=== PATIENT | female | born 1970 | race Caucasian/White ===

== ENCOUNTER → 2017-05-10 | Outpatient (CLI) | payer BC ==
[~2017-05-10] MED LIST: ALPR-475 PO; LEVO100T5 PO; LISI1TAB5 PO; LURA20TA PO; NORE5TAB PO; OMNIPAQUE 350 MG/ML, 100ML BOTTLE ONE; OXYC1TAB7 PO
== END | disposition home or self-care (01) ==
LOC: CFH 11:29
PROVIDERS: ATTEND Physician Assistant Medical
DX: K57.30 Diverticulosis of large intestine without perforation or abscess without bleeding (principal); K76.0 Fatty (change of) liver, not elsewhere classified; N83.201 Unspecified ovarian cyst, right side
CPT/HCPCS: 36415; 74177; 82565; 85025; Q9967

== ENCOUNTER 2020-09-28 18:19 | Emergency (ER) | payer BC ==
[~2020-09-28] VITALS: Ht 170.2 cm; Wt 83.4 kg
[~2020-09-28 18:19] MED LIST changes: -ALPR-475 PO; +ALPR0.5T7 PO; +LISI1TAB39 PO; -LISI1TAB5 PO; -OMNIPAQUE 350 MG/ML, 100ML BOTTLE ONE
[2020-09-28] MEDS ORDERED: SODIUM CHLORIDE FLUSH 10ML SYR IVF ONE ×2 (19:00→22:30)
[2020-09-28 19:57] LABS: BASOPHILS % (AUTO) 1 % (0-1); EOSINOPHILS % (AUTO) 1 % (1-7); LYMPHOCYTES % (AUTO) 43 % (22-44); MD NO; MEAN CORPUSCULAR HEMOGLOBIN 30.7 pg (27.0-34.8); MEAN CORPUSCULAR HGB CONC 33.5 g/dL (32.4-35.8); MEAN PLATELET VOLUME 7.6 fL (7.4-10.4); MONOCYTES % (AUTO) 5 % (2-9); NEUTROPHILS % (AUTO) 50 % (42-75); PLATELET COUNT 356 x10^3/uL (130-400); RED CELL DISTRIBUTION WIDTH 13.1 % (9.6-15.2)
[2020-09-28 20:03] LABS: CHLORIDE 107 mmol/L (98-107)
[2020-09-28 20:12] LABS: ALANINE AMINOTRANSFERASE 26 U/L (12-78); ALBUMIN 4.5 g/dL (3.4-5.0); ALKALINE PHOSPHATASE 77 U/L (45-117); ANION GAP 5 mmol/L (5-15); BILIRUBIN,TOTAL 0.5 mg/dL (0.2-1.0); CALCIUM 9.3 mg/dL (8.5-10.1); CREATININE 0.62 mg/dL (0.55-1.02); TOTAL PROTEIN 8.3 g/dL (6.4-8.2); TROPONIN I < 0.015 ng/mL (0.000-0.045)
--- NOTE | 2020-09-28 22:05 | NUR ---
PT IN GOWN IN [facility]; AWAITING ERP AT THIS TIME.
--- NOTE | 2020-09-28 22:08 | NUR ---
DR SHOOK AT FOR PT HISTORY AND ASSESSMENT.
[2020-09-28] MEDS ORDERED: MORPHINE SULFATE 4 MG/ML, 1ML ONE (22:26)
[2020-09-28] MEDS ORDERED: ONDANSETRON 2MG/ML, 2ML ONE (22:27)
[2020-09-28] MEDS ORDERED: ONDANSETRON 2MG/ML, 2ML IVPush ONE (22:30)
[2020-09-28] MEDS ORDERED: MORPHINE SULFATE 4 MG/ML, 1ML IVPush PRN (22:30)
--- NOTE | 2020-09-28 22:43 | NUR ---
PT MEDICATED FOR PAIN AND NAUSEA PER JAN. PT TO CT VIA [facility] AT THIS TIME.
--- NOTE | 2020-09-28 23:00 | NUR ---
PT RETURNS FROM CT VIA [facility] AT THIS TIME.
--- NOTE | 2020-09-28 23:29 | NUR ---
PT RESTING COMFORTABLY IN GURNEY AT THIS TIME WITH NADN. PT WITH CALL LIGHT WITHIN REACH. PT DENIES ANY NEEDS AT THIS TIME.
[2020-09-28 23:42] LABS: MICROSCOPIC NOT IND
[2020-09-28] MEDS ORDERED: OMNIPAQUE 350 MG/ML, 100ML BOTTLE ONE (23:43)
[2020-09-29 00:20] VITALS: BP 134/78
== END 2020-09-29 01:18 | disposition home or self-care (01) ==
LOC: ED 09-29 00:51
DX: R10.84 Generalized abdominal pain (principal); I10 Essential (primary) hypertension; Z90.49 Acquired absence of other specified parts of digestive tract; Z90.710 Acquired absence of both cervix and uterus
CPT/HCPCS: 36415; 71045; 74177; 76700; 80053; 81003; 83690; 84484; 85025; 96374; 96375; 99285; J2270; J2405; Q9967

== ENCOUNTER 2021-01-23 10:53 | Emergency (ER) | payer BC ==
[~2021-01-23] VITALS: Ht 170.2 cm; Wt 81.7 kg
--- NOTE | 2021-01-23 11:14 | NUR ---
PA AT BS
[2021-01-23] MEDS ORDERED: DIPHENHYDRAMINE 50 MG/ML, 1ML IVPush ONE (11:30)
[2021-01-23] MEDS ORDERED: PROCHLORPERAZINE 5 MG/ML, 2ML IVPush ONE (11:30)
[2021-01-23] MEDS ORDERED: SODIUM CHLORIDE 0.9% 1,000ML IVBOLUS ONE (11:30)
[2021-01-23] MEDS ORDERED: DIPHENHYDRAMINE 50 MG/ML, 1ML ONE (11:35)
[2021-01-23] MEDS ORDERED: PROCHLORPERAZINE 5 MG/ML, 2ML ONE (11:35)
[2021-01-23 11:44] LABS: BASOPHILS % (AUTO) 1 % (0-1); EOSINOPHILS % (AUTO) 2 % (1-7); LYMPHOCYTES % (AUTO) 18 % (22-44); MD NO; MEAN CORPUSCULAR HEMOGLOBIN 30.7 pg (27.0-34.8); MEAN CORPUSCULAR HGB CONC 33.1 g/dL (32.4-35.8); MEAN PLATELET VOLUME 7.3 fL (7.4-10.4); MONOCYTES % (AUTO) 10 % (2-9); NEUTROPHILS % (AUTO) 69 % (42-75); PLATELET COUNT 271 x10^3/uL (130-400); RED BLOOD COUNT 4.87 x10^6/uL (3.82-5.3); RED CELL DISTRIBUTION WIDTH 13.2 % (9.6-15.2)
[2021-01-23 11:50] LABS: ALBUMIN 4.5 g/dL (3.4-5.0); ANION GAP 7 mmol/L (5-15); CALCIUM 9.5 mg/dL (8.5-10.1); CHLORIDE 106 mmol/L (98-107); CREATININE 0.72 mg/dL (0.55-1.02)
[2021-01-23 11:57] LABS: RAPID INFLUENZA A Negative (Negative); RAPID INFLUENZA B Negative (Negative)
--- NOTE | 2021-01-23 13:05 | NUR ---
VSS, PT REPORTS JOINT PAIN IMPROVED BUT LANDEROS PAIN CONTINUES AT 9/10. CT RESULTS PENDING
[2021-01-23] MEDS ORDERED: GADOTERATE 10 MMOL/20ML SYR ONE (14:40)
[2021-01-23 16:16] VITALS: BP 140/75
--- NOTE | 2021-01-23 16:17 | NUR ---
POC DISCUSSED WITH DR HERNANDEZ. DR ATKINS TO DISCUSS WITH PT. PT INFORMED
--- NOTE | 2021-01-23 16:39 | NUR ---
Patient given discharge instructions and they have confirmed that they understand the instructions. Patient ambulatory with steady gait.
== END 2021-01-23 16:41 | disposition home or self-care (01) ==
LOC: ED 11:10
DX: U07.1 COVID-19 (principal); B34.9 Viral infection, unspecified
CPT/HCPCS: 36415; 70450; 70553; 71045; 80048; 82040; 85025; 87400; 96361; 96374; 96375; 99285; A9575; J0780; J1200; J7030; U0003

== ENCOUNTER 2021-04-09 17:22 | Emergency (ER) | payer BC ==
[~2021-04-09] VITALS: Ht 170.2 cm; Wt 82.7 kg
--- NOTE | 2021-04-09 17:57 | NUR ---
OFFSET LABEL REWINDER: PT AMBULATORY TO ROOM FROM LOBBY AT THIS TIME.
--- NOTE | 2021-04-09 18:49 | NUR ---
PT STATES CAME JANUARY 23 FOR COVID AND A HEADACHE. PT STATES FORCED THEM TO GIVE A COVID TEST WHICH CAME BACK. PT STATES THAT HAS SEEN 5 DOCTORS AND HAS BEEN GIVEN STERIODS AND INHALERS. PT STATES THAT IT HAS BECOME WORSE TODAY COUGHING AND DIFFICULT BREATHING AFTER TAKING 2 ALBUTEROL TREATEMENTS AND AFTER TAKING HER SIMBICORE. PT FELT SICK AND STARTING A FEVER COMING ON TODAY. PT IS OVER BEING SENT HOME WITH ANTIBIOTICS AND STERIODS. PT STATES THAT SHE HAS CRACKLES ON LUNGS.
--- NOTE | 2021-04-09 19:06 | NUR ---
PROVIDER AT BEDSIDE TO DO EVALUATIONS PT ALSO STATES LIVED IN HOUSE WITH MOLD FOR 5 MONTHS AND THE ROOF CAVED. PT STATES TOOK TODAY 4 ALBUTEROL 4 PUFF SIMBICORE, X2 800MG IBPROFEN, ANTIBIOTICS.
--- NOTE | 2021-04-09 19:08 | NUR ---
RECEIVED BS REPORT FROM APOLINAR ROTHMAN TO ASSUME CARE OF PT. DR. MARTINEZ AT BS TO EVAL PT. AND DISCUSS POC.
--- NOTE | 2021-04-09 19:11 | NUR ---
GAVE REORT TO NITIN JIANG TO ASSUME CARE.
[2021-04-09 20:23] VITALS: BP 134/84
[2021-04-09] MEDS ORDERED: PROMETHAZINE 25 MG/ML, 1ML IM ONE (20:30)
== END 2021-04-09 20:34 | disposition home or self-care (01) ==
LOC: ED 20:00
DX: R07.89 Other chest pain (principal); R06.00 Dyspnea, unspecified; E66.9 Obesity, unspecified; I10 Essential (primary) hypertension; E11.9 Type 2 diabetes mellitus without complications; Z90.49 Acquired absence of other specified parts of digestive tract; Z90.710 Acquired absence of both cervix and uterus
CPT/HCPCS: 71045; 93005; 99283

== ENCOUNTER 2021-05-28 12:26 | Emergency (ER) | payer BC ==
[~2021-05-28] VITALS: Ht 170.2 cm; Wt 82.8 kg
--- NOTE | 2021-05-28 12:58 | NUR ---
PT AMBULATORY TO ROOM FROM TRIAGE, REFUSED TO CHANGE INTO GOWN. MONITORS IN PLACE. PT C/O SOB SINCE SHE HAD COVID IN JANUARY. PT STATES SHE USES A BREATHING TX AT HOME THAT IS THE ONLY THING THAT GIVES HER RELIEF FOR A COUPLE HOURS.
--- NOTE | 2021-05-28 13:35 | NUR ---
PA AT BS
[2021-05-28 14:43] LABS: BASOPHILS % (AUTO) 1 % (0-1); EOSINOPHILS % (AUTO) 3 % (1-7); LYMPHOCYTES % (AUTO) 32 % (22-44); MEAN CORPUSCULAR HEMOGLOBIN 31.2 pg (27.0-34.8); MEAN PLATELET VOLUME 7.5 fL (7.4-10.4); MONOCYTES % (AUTO) 5 % (2-9); NEUTROPHILS % (AUTO) 59 % (42-75); PLATELET COUNT 291 x10^3/uL (130-400); RED BLOOD COUNT 4.81 x10^6/uL (3.82-5.3); RED CELL DISTRIBUTION WIDTH 13.2 % (9.6-15.2)
[2021-05-28 14:54] LABS: ALANINE AMINOTRANSFERASE 32 U/L (12-78); ALBUMIN 4.6 g/dL (3.4-5.0); ANION GAP 7 mmol/L (5-15); CHLORIDE 109 mmol/L (98-107); CREATININE 0.61 mg/dL (0.55-1.02)
[2021-05-28 14:59] LABS: ALKALINE PHOSPHATASE 62 U/L (45-117); BILIRUBIN,TOTAL 0.4 mg/dL (0.2-1.0); TOTAL PROTEIN 8.5 g/dL (6.4-8.2); TROPONIN I < 0.015 ng/mL (0.000-0.045)
[2021-05-28 16:00] VITALS: BP 153/93
--- NOTE | 2021-05-28 16:25 | NUR ---
ERP AT BS
--- NOTE | 2021-05-28 17:02 | NUR ---
Patient given discharge instructions and RX, they have confirmed that they understand the instructions. Patient ambulatory with steady gait.
== END 2021-05-28 17:03 | disposition home or self-care (01) ==
LOC: ED 14:18
DX: R06.00 Dyspnea, unspecified (principal); I10 Essential (primary) hypertension
CPT/HCPCS: 36415; 71250; 80053; 83880; 84484; 85025; 85379; 93005; 99285

== ENCOUNTER 2021-06-26 10:08 | Outpatient (CLI) | payer BC ==
[2021-06-26] MEDS ORDERED: OMNIPAQUE 350 MG/ML, 100ML BOTTLE ONE (10:30)
== END 2021-06-26 23:59 | disposition home or self-care (01) ==
LOC: RAD 10:08
PROVIDERS: ATTEND Nurse Practitioner Family
DX: R06.02 Shortness of breath (principal)
CPT/HCPCS: 71275; Q9967